=== PATIENT | female | born 1965 | race Caucasian/White ===

== ENCOUNTER 2025-03-02 10:21 | Day surgery (SDC) | payer OTHER ==
[~2025-03-02] VITALS: Ht 160 cm; Wt 77.7 kg
[~2025-03-02 10:21] MED LIST: CARV3.12 PO; CITA40TA7 PO; HYDR-3713; OMEP1CAP73; POTA1TAB24 PO; SUCR1TAB56
[2025-03-02] MEDS ORDERED: LIDOCAINE 2% 100 MG/5 ML SDV (FOR ANES.) As Ordered ONE (10:58)
[2025-03-02 11:13] VITALS: TEMP 97.5
[2025-03-02 11:40] VITALS: BP 111/60; O2SAT 99
== END 2025-03-02 11:49 | disposition home or self-care (01) ==
LOC: M OPP 10:21
PROVIDERS: ATTEND Surgery
DX: Z12.11 Encounter for screening for malignant neoplasm of colon (principal); D12.6 Benign neoplasm of colon, unspecified; K57.30 Diverticulosis of large intestine without perforation or abscess without bleeding; I10 Essential (primary) hypertension; Z79.899 Other long term (current) drug therapy